=== PATIENT | female | born 1980 | race African-American/Black ===

== ENCOUNTER 2017-05-16 15:33 | Emergency (ER) | payer SELFPAY ==
[2017-05-16 18:54] LABS: #Basophils 0.2 thou/uL (0.0-0.2); #Eosinphils 0.4 thou/uL (0.0-0.7); #Lymphocytes 5.5 thou/uL (1.20-3.40); #Monocytes 0.7 thou/uL (0.11-0.59); #Neutrophils 5.3 thou/uL (1.40-6.50); %Basophils 1.3 % (0.0-1.0); %Eosinophils 3.5 % (0.0-10.0); %Lymphocytes 45.6 % (21.0-51.0); %Monocytes 5.8 % (0.0-10.0); Hematocrit 39.9 % (36.0-47.0); Mean Platelet Volume 7.7 fL (7.4-10.4); Red Blood Cell (RBC) Count 4.31 mill/uL (4.20-5.40); White Blood Cell (WBC) Count 12.1 thou/uL (4.8-10.8)
[2017-05-16] MEDS ORDERED: Diazepam 5 MG TAB ONE (19:10)
[2017-05-16] MEDS ORDERED: Acetaminophen 500 MG TAB ONE (19:10)
[2017-05-16 19:13] LABS: Anion Gap 12 mmol/L (10-20); BUN (Urea Nitrogen) 6 mg/dL (7.0-18.7); Calc. Creatinine Clearance 0 mL/min (70-130); Calcium 9.4 mg/dL (7.8-10.44); Carbon Dioxide 22 mmol/L (22-29); Chloride 104 mmol/L (98-107); Estimated GFR-MDRD Greater than 90
[2017-05-16] MEDS ORDERED: Ketorolac Tromethamine 30 MG/ML VIAL ONE (19:17)
[2017-05-16 19:18] LABS: Troponin I Less than 0.010 ng/mL (< 0.028)
--- NOTE | 2017-05-16 19:41 | RAD ---
CHEST TWO VIEWS: History: Cough. Comparison: 02-18-17 FINDINGS: Lungs are clear. No pneumothorax or effusion. Cardiac silhouette and mediastinal contours within norm al limits. IMPRESSION: No acute intrathoracic abnormality. POS: [facility]
[2017-05-16] MEDS ORDERED: Meclizine HCl 25 MG TAB ONE (21:32)
== END 2017-05-16 21:39 | disposition home or self-care (01) ==
LOC: ERS 15:33
DX: R42 Dizziness and giddiness (principal); R05 Cough; E11.9 Type 2 diabetes mellitus without complications; F17.210 Nicotine dependence, cigarettes, uncomplicated; J45.909 Unspecified asthma, uncomplicated; Z79.84 Long term (current) use of oral hypoglycemic drugs
CPT/HCPCS: 36415; 71020; 80048; 82553; 84484; 85025; 85379; 96372; 99406; J1885; J7620

== ENCOUNTER 2017-06-17 18:07 | Emergency (ER) | payer SELFPAY ==
[2017-06-17] MEDS ORDERED: methylPREDNISolone Sod Succ/PF 125 MG/2 ML VIAL ONE (18:39)
[2017-06-17] MEDS ORDERED: Water For Inject, Bacteriostat 30 ML ONE (18:39)
[2017-06-17] MEDS ORDERED: Albuterol Sulfate 2.5 mg/0.5 ml Neb ONE (18:49)
--- NOTE | 2017-06-17 18:56 | RAD ---
AP CHEST: Indication: Dyspnea. Comparison: 05-16-17 IMPRESSION: No acute cardiopulmonary abnormalities. Examination is not appreciably changed from comparison dated 05-16-17. POS: [facility]
[2017-06-17 19:00] LABS: #Basophils 0.2 thou/uL (0.0-0.2); #Eosinphils 0.3 thou/uL (0.0-0.7); #Lymphocytes 5.6 thou/uL (1.20-3.40); #Monocytes 0.6 thou/uL (0.11-0.59); #Neutrophils 5.2 thou/uL (1.40-6.50); %Basophils 1.4 % (0.0-1.0); %Eosinophils 2.3 % (0.0-10.0); %Monocytes 5.2 % (0.0-10.0); Hemoglobin 13.2 g/dL (12.0-16.0); Mean Corpuscular HGB CONC 33.7 g/dL (32.0-36.0); Mean Corpuscular Hemoglobin 31.2 pg (27.0-31.0); Mean Corpuscular Volume 92.5 fl (81.0-99.0); Mean Platelet Volume 9.1 fL (7.4-10.4); Platelet Count 256 thou/uL (130-400); RBC Distribution Width 12.2 % (11.5-14.5); Red Blood Cell (RBC) Count 4.24 mill/uL (4.20-5.40); White Blood Cell (WBC) Count 11.8 thou/uL (4.8-10.8)
[2017-06-17 19:25] LABS: ALT (SGPT) 44 U/L (8-55); AST (SGOT) 34 U/L (5-34); Albumin 4.1 g/dL (3.5-5.0); Alkaline Phosphatase 93 U/L (40-150); Anion Gap 18 mmol/L (10-20); BUN (Urea Nitrogen) 8 mg/dL (7.0-18.7); Bilirubin, Total 0.2 mg/dL (0.2-1.2); Calc. Creatinine Clearance 0 mL/min (70-130); Calcium 9.7 mg/dL (7.8-10.44); Carbon Dioxide 18 mmol/L (22-29); Chloride 105 mmol/L (98-107); Estimated GFR-MDRD Greater than 90; Globulin 3.9 g/dL (2.4-3.5); Glucose 239 mg/dL (70-105); Potassium 4.5 mmol/L (3.5-5.1); Sodium 136 mmol/L (136-145)
== END 2017-06-17 20:28 | disposition home or self-care (01) ==
LOC: ERS 18:07
DX: J45.901 Unspecified asthma with (acute) exacerbation (principal); E11.9 Type 2 diabetes mellitus without complications; Z71.6 Tobacco abuse counseling; F17.210 Nicotine dependence, cigarettes, uncomplicated; F17.290 Nicotine dependence, other tobacco product, uncomplicated
CPT/HCPCS: 36416; 71045; 80053; 85025; 94640; 94760; 96365; 99406; J2930; J7611; J7620

== ENCOUNTER 2017-09-19 12:13 | Emergency (ER) | payer SELFPAY ==
[2017-09-19 13:13] LABS: #Basophils 0.1 thou/uL (0.0-0.2); #Eosinphils 0.4 thou/uL (0.0-0.7); #Lymphocytes 4.4 thou/uL (1.20-3.40); #Monocytes 0.6 thou/uL (0.11-0.59); #Neutrophils 5.6 thou/uL (1.40-6.50); %Basophils 1.1 % (0.0-1.0); %Eosinophils 3.6 % (0.0-10.0); %Lymphocytes 39.8 % (21.0-51.0); %Monocytes 5.3 % (0.0-10.0); %Neutrophils 50.2 % (42.0-75.0); Hemoglobin 11.9 g/dL (12.0-16.0); Mean Corpuscular HGB CONC 33.6 g/dL (32.0-36.0); Mean Corpuscular Hemoglobin 29.8 pg (27.0-31.0); Mean Corpuscular Volume 88.8 fl (81.0-99.0); Mean Platelet Volume 8.1 fL (7.4-10.4); Platelet Count 265 thou/uL (130-400); RBC Distribution Width 12.3 % (11.5-14.5); White Blood Cell (WBC) Count 11.1 thou/uL (4.8-10.8)
[2017-09-19 13:34] LABS: ALT (SGPT) 37 U/L (8-55); AST (SGOT) 25 U/L (5-34); Albumin 3.8 g/dL (3.5-5.0); Alkaline Phosphatase 96 U/L (40-150); Anion Gap 11 mmol/L (10-20); BUN (Urea Nitrogen) 11 mg/dL (7.0-18.7); Bilirubin, Total 0.2 mg/dL (0.2-1.2); Calc. Creatinine Clearance 0 mL/min (70-130); Calcium 9.2 mg/dL (7.8-10.44); Carbon Dioxide 22 mmol/L (22-29); Chloride 106 mmol/L (98-107); Estimated GFR-MDRD Greater than 90; Globulin 3.4 g/dL (2.4-3.5); Glucose 347 mg/dL (70-105); Protein, Total 7.2 g/dL (6.0-8.3); Sodium 135 mmol/L (136-145)
[2017-09-19 13:37] LABS: CKMB 0.6 ng/mL (0-6.6); Troponin I Less than 0.010 ng/mL (< 0.028)
--- NOTE | 2017-09-19 13:37 | RAD ---
PORTABLE CHEST 1 VIEW: Date: 09/19/17 Time: 1234 hours HISTORY: Chest pain. FINDINGS: Comparison made with exam of 06/17/17. The heart size is normal. The lungs are expanded without focal areas of consolidation, pneumothorax, or pleural effusions. IMPRESSION: No radiographic evidence of acute cardiopulmonary process. POS: [facility]
[2017-09-19] MEDS ORDERED: methylPREDNISolone Sod Succ/PF 125 MG/2 ML VIAL ONE (13:51)
[2017-09-19 13:54] LABS: Amphetamine Not Detected (NotDetected); Barbiturates Screen Not Detected (NotDetected); Benzodiazepine Screen Not Detected (NotDetected); Cocaine Metabolite Screen Not Detected (NotDetected); Medtox Control Line Valid? VALID (VALID); Medtox Reader # READER 4; Methadone Not Detected (NotDetected); Methamphetamine Not Detected (NotDetected); Opiate Screen Not Detected (NotDetected); Oxycodone Screen Not Detected (NotDetected); Phencyclidine (PCP) Not Detected (NotDetected); THC/Cannabinoid Screen Not Detected (NotDetected); Tricyclic Screen Not Detected (NotDetected)
== END 2017-09-19 14:35 | disposition home or self-care (01) ==
LOC: ERS 12:13
DX: J45.901 Unspecified asthma with (acute) exacerbation (principal); E11.9 Type 2 diabetes mellitus without complications; F17.210 Nicotine dependence, cigarettes, uncomplicated; Z79.84 Long term (current) use of oral hypoglycemic drugs
CPT/HCPCS: 36415; 71045; 80053; 80306; 82553; 84484; 85025; 93005; 94640; 96374; J2930; J7620

== ENCOUNTER 2017-10-14 09:58 | Emergency (ER) | payer SELFPAY ==
[2017-10-14] MEDS ORDERED: Ketorolac Tromethamine 60 MG/2 ML VIAL ONE (11:11)
== END 2017-10-14 11:33 | disposition home or self-care (01) ==
LOC: ERS 09:58
DX: S39.012A Strain of muscle, fascia and tendon of lower back, initial encounter (principal); J45.909 Unspecified asthma, uncomplicated; E11.9 Type 2 diabetes mellitus without complications; Z79.84 Long term (current) use of oral hypoglycemic drugs; F17.210 Nicotine dependence, cigarettes, uncomplicated; Z71.6 Tobacco abuse counseling; X50.9XXA Other and unspecified overexertion or strenuous movements or postures, initial encounter
CPT/HCPCS: 96372; J1885

== ENCOUNTER 2017-11-29 05:00 | Emergency (ER) | payer SELFPAY ==
[2017-11-29] MEDS ORDERED: Ketorolac Tromethamine 30 MG/ML VIAL ONE (05:16)
[2017-11-29 05:27] LABS: #Basophils 0.1 thou/uL (0.0-0.2); #Eosinphils 0.3 thou/uL (0.0-0.7); #Lymphocytes 4.2 thou/uL (1.20-3.40); #Monocytes 0.6 thou/uL (0.11-0.59); #Neutrophils 3.4 thou/uL (1.40-6.50); %Basophils 1.3 % (0.0-1.0); %Eosinophils 3.9 % (0.0-10.0); %Lymphocytes 48.5 % (21.0-51.0); %Monocytes 7.1 % (0.0-10.0); %Neutrophils 39.3 % (42.0-75.0); Hemoglobin 10.7 g/dL (12.0-16.0); Mean Corpuscular HGB CONC 34.3 g/dL (32.0-36.0); Mean Corpuscular Hemoglobin 29.8 pg (27.0-31.0); Mean Corpuscular Volume 86.7 fl (81.0-99.0); Mean Platelet Volume 8.1 fL (7.4-10.4); Platelet Count 268 thou/uL (130-400); RBC Distribution Width 12.6 % (11.5-14.5); White Blood Cell (WBC) Count 8.6 thou/uL (4.8-10.8)
[2017-11-29 05:44] LABS: ALT (SGPT) 31 U/L (8-55); AST (SGOT) 24 U/L (5-34); Albumin 3.8 g/dL (3.5-5.0); Alkaline Phosphatase 104 U/L (40-150); Anion Gap 13 mmol/L (10-20); BUN (Urea Nitrogen) 10 mg/dL (7.0-18.7); Bilirubin, Total 0.2 mg/dL (0.2-1.2); Calc. Creatinine Clearance 0 mL/min (70-130); Carbon Dioxide 22 mmol/L (22-29); Chloride 106 mmol/L (98-107); Estimated GFR-MDRD Greater than 90; Globulin 3.7 g/dL (2.4-3.5); Glucose 272 mg/dL (70-105); Potassium 4.2 mmol/L (3.5-5.1); Protein, Total 7.5 g/dL (6.0-8.3); Sodium 137 mmol/L (136-145)
[2017-11-29 05:46] LABS: CKMB 0.3 ng/mL (0-6.6); Troponin I Less than 0.010 ng/mL (< 0.028)
[2017-11-29] MEDS ORDERED: predniSONE 20 MG TAB ONE (05:56)
[2017-11-29] MEDS ORDERED: Albuterol Sulfate 2.5 mg/3 ml Neb ONE (06:05)
--- NOTE | 2017-11-29 08:10 | RAD ---
PORTABLE CHEST 1 VIEW: DATE: 11/29/17. TIME: 5:20 a.m. HISTORY: Chest pian. FINDINGS: Comparison is made with the exam of 09/19/17. The heart size is normal. No focal areas of consolidation, pneumothorax, or pleural effusions are se en. IMPRESSION: No radiographic evidence of acute cardiopulmonary process. POS: [facility]
== END 2017-11-29 06:49 | disposition home or self-care (01) ==
LOC: ERS 05:00
DX: R07.9 Chest pain, unspecified (principal); J45.909 Unspecified asthma, uncomplicated; E11.9 Type 2 diabetes mellitus without complications; F17.210 Nicotine dependence, cigarettes, uncomplicated; Z79.84 Long term (current) use of oral hypoglycemic drugs; Z79.899 Other long term (current) drug therapy
CPT/HCPCS: 36415; 71045; 80053; 82553; 83880; 84484; 85025; 93005; 94640; 96361; 96374; J1885; J7506; J7611; J7620

== ENCOUNTER 2017-12-25 12:01 | Emergency (ER) | payer SELFPAY | END 2017-12-25 13:18 | disposition home or self-care (01) | LOC: ERS 12:01 | DX: J02.0 Streptococcal pharyngitis (principal); J30.9 Allergic rhinitis, unspecified; Z71.6 Tobacco abuse counseling; J45.909 Unspecified asthma, uncomplicated; E11.9 Type 2 diabetes mellitus without complications; F17.290 Nicotine dependence, other tobacco product, uncomplicated | CPT/HCPCS: 87430; 99406 ==

== ENCOUNTER 2018-01-08 18:58 | Emergency (ER) | payer SELFPAY | END 2018-01-09 00:09 | disposition left against medical advice (07) | LOC: ERS 18:58 | DX: Z53.21 Procedure and treatment not carried out due to patient leaving prior to being seen by health care provider (principal) | CPT/HCPCS: 36416 ==

== ENCOUNTER 2018-02-14 17:50 | Emergency (ER) | payer SELFPAY ==
[2018-02-14 18:50] LABS: #Basophils 0.1 thou/uL (0.0-0.2); #Eosinphils 0.2 thou/uL (0.0-0.7); #Lymphocytes 4.5 thou/uL (1.20-3.40); #Monocytes 0.5 thou/uL (0.11-0.59); #Neutrophils 3.7 thou/uL (1.40-6.50); %Basophils 1.5 % (0.0-1.0); %Eosinophils 2.7 % (0.0-10.0); %Lymphocytes 49.4 % (21.0-51.0); %Monocytes 5.2 % (0.0-10.0); %Neutrophils 41.2 % (42.0-75.0); Hemoglobin 11.7 g/dL (12.0-16.0); Mean Corpuscular HGB CONC 33.7 g/dL (32.0-36.0); Mean Corpuscular Hemoglobin 28.3 pg (27.0-31.0); Mean Corpuscular Volume 83.8 fL (78.0-98.0); Mean Platelet Volume 7.9 fL (7.4-10.4); Platelet Count 318 thou/uL (130-400); RBC Distribution Width 13.4 % (11.5-14.5); Red Blood Cell (RBC) Count 4.14 mill/uL (4.20-5.40); White Blood Cell (WBC) Count 9.1 thou/uL (4.8-10.8)
[2018-02-14 19:12] LABS: ALT (SGPT) 27 U/L (8-55); AST (SGOT) 17 U/L (5-34); Albumin 4.2 g/dL (3.5-5.0); Alkaline Phosphatase 90 U/L (40-150); Anion Gap 11 mmol/L (10-20); BUN (Urea Nitrogen) 9 mg/dL (7.0-18.7); Bilirubin, Total 0.2 mg/dL (0.2-1.2); Calc. Creatinine Clearance 0 mL/min (70-130); Calcium 9.4 mg/dL (7.8-10.44); Carbon Dioxide 22 mmol/L (22-29); Chloride 105 mmol/L (98-107); Estimated GFR-MDRD 85; Glucose 229 mg/dL (70-105); Potassium 4.1 mmol/L (3.5-5.1); Protein, Total 8.2 g/dL (6.0-8.3); Sodium 134 mmol/L (136-145)
[2018-02-14 20:57] LABS: Bilirubin Negative (Negative); Blood, Urine Negative (Negative); Clarity CLOUDY (Clear); Glucose, Urine (Dipstick) 250 mg/dL (Negative); Leukocyte Small (Negative); Nitrite Positive (Negative); Protein, Urine (Dipstick) Trace mg/dL (Neg-Trace); Specific Gravity, Urine 1.032 (1.002-1.036); Urobilinogen 0.2 mg/dL (0.2-1.0); pH, Urine 5.5 (5.0-9.0)
[2018-02-14 20:58] LABS: Pregnancy Test - Urine (BHCG) Negative (Negative); Pregu Control Background? CLEAR/WHITE (CLR/WHITE); Pregu Control Bar Appear? YES (CONTROL BAR); Specific Gravity 1.032 (1.002-1.036)
[2018-02-14 20:59] LABS: Bacteria/HPF 4+ HPF (None Seen); Pathc Cast-AUWi Flag 1.45 (0-2.49); RBC/HPF 0-3 HPF (0-3); Squamous Epithelial 0-3 HPF (0-3)
[2018-02-14 21:01] LABS: Hyaline Casts/LPF 0-3 HYALINE CAST LPF (0-3 Hyaline)
[2018-02-14] MEDS ORDERED: Meclizine HCl 25 MG TAB ONE (21:07)
[2018-02-14] MEDS ORDERED: cefTRIAXone\\ROCEPHIN 1 GM VIAL ONE (21:57)
== END 2018-02-14 22:52 | disposition home or self-care (01) ==
LOC: ERS 17:50
DX: N39.0 Urinary tract infection, site not specified (principal); J45.909 Unspecified asthma, uncomplicated; E11.9 Type 2 diabetes mellitus without complications; F17.210 Nicotine dependence, cigarettes, uncomplicated
CPT/HCPCS: 36415; 80053; 81003; 81015; 81025; 85025; 87077; 87086; 87186; 93005; 96361; 96365; J0696

== ENCOUNTER 2018-05-30 17:34 | Emergency (ER) | payer SELFPAY ==
[2018-05-30] MEDS ORDERED: Meclizine HCl 25 MG TAB ONE (18:11)
[2018-05-30 18:15] LABS: #Basophils 0.1 thou/uL (0.0-0.2); #Eosinphils 0.2 thou/uL (0.0-0.7); #Lymphocytes 3.2 thou/uL (1.20-3.40); #Monocytes 0.5 thou/uL (0.11-0.59); #Neutrophils 3.8 thou/uL (1.40-6.50); %Basophils 1.3 % (0.0-1.0); %Eosinophils 2.8 % (0.0-10.0); %Lymphocytes 40.6 % (21.0-51.0); %Monocytes 6.3 % (0.0-10.0); %Neutrophils 48.9 % (42.0-75.0); Hemoglobin 10.5 g/dL (12.0-16.0); Mean Corpuscular HGB CONC 31.8 g/dL (32.0-36.0); Mean Corpuscular Volume 81.8 fL (78.0-98.0); Mean Platelet Volume 8.1 fL (7.4-10.4); Platelet Count 338 thou/uL (130-400); RBC Distribution Width 13.8 % (11.5-14.5); Red Blood Cell (RBC) Count 4.05 mill/uL (4.20-5.40); White Blood Cell (WBC) Count 7.8 thou/uL (4.8-10.8)
[2018-05-30 18:24] LABS: BHCG - Serum Negative (NEGATIVE); Pregs Control Background? CLEAR/WHITE (CLR/WHITE); Pregs Control Bar Appear? YES (CONTROL BAR)
--- NOTE | 2018-05-30 18:31 | RAD ---
RADIOGRAPH CHEST 1 VIEW: 05/30/18 HISTORY: 37-year-old female with chest pain and generalized weakness. FINDINGS: There is no air space density, pulmonary edema, or pneumothorax. The lateral costophrenic angles are sharp. IMPRESSION: No acute pulmonary findings. jn [] POS: [facility]
[2018-05-30 18:34] LABS: CK (CPK) 86 U/L (29-168); Lipase 15 U/L (8-78)
[2018-05-30 20:17] LABS: ALT (SGPT) 18 U/L (8-55); AST (SGOT) 17 U/L (5-34); Albumin 3.8 g/dL (3.5-5.0); Alkaline Phosphatase 87 U/L (40-150); Anion Gap 10 mmol/L (10-20); BUN (Urea Nitrogen) 7 mg/dL (7.0-18.7); Bilirubin, Total 0.2 mg/dL (0.2-1.2); Calc. Creatinine Clearance 0 mL/min (70-130); Calcium 9.1 mg/dL (7.8-10.44); Carbon Dioxide 26 mmol/L (22-29); Chloride 106 mmol/L (98-107); Estimated GFR-MDRD Greater than 90; Globulin 3.8 g/dL (2.4-3.5); Glucose 241 mg/dL (70-105); Potassium 3.7 mmol/L (3.5-5.1); Protein, Total 7.6 g/dL (6.0-8.3); Sodium 138 mmol/L (136-145)
[2018-05-30 20:36] LABS: Bilirubin Negative (Negative); Blood, Urine Negative (Negative); Clarity CLEAR (Clear); Glucose, Urine (Dipstick) >=1000 mg/dL (Negative); Leukocyte Trace (Negative); Nitrite Negative (Negative); Protein, Urine (Dipstick) Negative (Neg-Trace); Specific Gravity, Urine 1.025 (1.002-1.036)
[2018-05-30 20:39] LABS: Bacteria/HPF Rare-Few HPF (None Seen); Hyaline Casts/LPF 0-3 HYALINE CAST LPF (0-3 Hyaline); Pathc Cast-AUWi Flag 0.14 (0-2.49); RBC/HPF 0-3 HPF (0-3)
[2018-05-30 20:48] LABS: Squamous Epithelial 0-3 HPF (0-3)
[2018-05-30] MEDS ORDERED: Acetaminophen 500 MG TAB ONE (21:58)
[2018-05-30] MEDS ORDERED: Diazepam 5 MG TAB ONE (21:58)
[2018-05-30] MEDS ORDERED: Cephalexin 250 MG CAP ONE (21:58)
--- NOTE | 2018-05-31 13:38 | EKG ---
Test Reason : Blood Pressure : / mmHG Vent. Rate : 072 BPM Atrial Rate : 072 BPM P-R Int : 178 ms QRS Dur : 086 ms QT Int : 398 ms P-R-T Axes : 043 057 034 degrees QTc Int : 435 ms Normal sinus rhythm Normal ECG Confirmed by RUTH MARSHALL DO ([id number]), editorial intern WHITLEY LIANG ([id number]) on 05/31/2018 1:37:40 PM Referred By: Confirmed By:RUTH MARSHALL DO
== END 2018-05-30 22:42 | disposition home or self-care (01) ==
LOC: ERS 17:34
DX: R42 Dizziness and giddiness (principal); N39.0 Urinary tract infection, site not specified; J45.909 Unspecified asthma, uncomplicated; E11.9 Type 2 diabetes mellitus without complications; F17.210 Nicotine dependence, cigarettes, uncomplicated; Z79.84 Long term (current) use of oral hypoglycemic drugs
CPT/HCPCS: 71045; 80053; 81003; 81015; 82010; 82550; 83690; 84484; 84703; 85025; 93005; 96360; 96361

== ENCOUNTER 2018-08-18 17:29 | Emergency (ER) | payer SELFPAY | END 2018-08-18 19:24 | disposition home or self-care (01) | LOC: ERS 17:29 | DX: S29.012A Strain of muscle and tendon of back wall of thorax, initial encounter (principal); E11.9 Type 2 diabetes mellitus without complications; J45.909 Unspecified asthma, uncomplicated; F17.210 Nicotine dependence, cigarettes, uncomplicated; X50.1XXA Overexertion from prolonged static or awkward postures, initial encounter | CPT/HCPCS: 99281 ==

== ENCOUNTER 2018-09-05 20:05 | Emergency (ER) | payer SELFPAY ==
--- NOTE | 2018-09-05 20:31 | RAD ---
CHEST ONE VIEW: 09/05/18 HISTORY: Pain. COMPARISON: 05/30/18. FINDINGS: Normal cardiac silhouette. Lungs and pleural spaces are clear. No pneumothorax or osseous abnormaliti es. IMPRESSION: No acute cardiopulmonary process. POS: [facility]
[2018-09-05] MEDS ORDERED: Nitroglycerin 0.4 MG TAB 1 EACH ONE (20:40)
[2018-09-05] MEDS ORDERED: Aspirin Chewable 81 MG TAB ONE (20:40)
[2018-09-05 20:43] LABS: #Basophils 0.1 thou/uL (0.0-0.2); #Eosinphils 0.3 thou/uL (0.0-0.7); #Lymphocytes 5.5 thou/uL (1.20-3.40); #Monocytes 0.8 thou/uL (0.11-0.59); #Neutrophils 5.2 thou/uL (1.40-6.50); %Basophils 1.2 % (0.0-1.0); %Eosinophils 2.2 % (0.0-10.0); %Lymphocytes 46.4 % (21.0-51.0); %Monocytes 6.3 % (0.0-10.0); %Neutrophils 43.8 % (42.0-75.0); Hemoglobin 10.6 g/dL (12.0-16.0); Mean Corpuscular HGB CONC 32.2 g/dL (32.0-36.0); Mean Corpuscular Hemoglobin 25.9 pg (27.0-31.0); Mean Corpuscular Volume 80.3 fL (78.0-98.0); Mean Platelet Volume 8.1 fL (7.4-10.4); Platelet Count 359 thou/uL (130-400); RBC Distribution Width 15.1 % (11.5-14.5); White Blood Cell (WBC) Count 11.8 thou/uL (4.8-10.8)
[2018-09-05 21:04] LABS: ALT (SGPT) 20 U/L (8-55); AST (SGOT) 15 U/L (5-34); Alkaline Phosphatase 99 U/L (40-150); Anion Gap 12 mmol/L (10-20); BUN (Urea Nitrogen) 10 mg/dL (7.0-18.7); Bilirubin, Total 0.2 mg/dL (0.2-1.2); Calc. Creatinine Clearance 0 mL/min (70-130); Calcium 9.3 mg/dL (7.8-10.44); Carbon Dioxide 24 mmol/L (22-29); Chloride 103 mmol/L (98-107); Estimated GFR-MDRD Greater than 90; Globulin 3.9 g/dL (2.4-3.5); Glucose 175 mg/dL (70-105); Potassium 3.9 mmol/L (3.5-5.1); Protein, Total 7.9 g/dL (6.0-8.3); Sodium 135 mmol/L (136-145)
[2018-09-05 21:07] LABS: BHCG - Serum Negative (NEGATIVE); Pregs Control Background? CLEAR/WHITE (CLR/WHITE); Pregs Control Bar Appear? YES (CONTROL BAR)
[2018-09-05] MEDS ORDERED: Morphine 4 MG/ML VIAL ONE (22:32)
[2018-09-05] MEDS ORDERED: Ondansetron PF 4 MG/2 ML Vial ONE (22:32)
[2018-09-06 00:29] LABS: Troponin I Less than 0.010 ng/mL (< 0.028)
== END 2018-09-06 00:59 | disposition home or self-care (01) ==
LOC: ERS 20:05
DX: R07.89 Other chest pain (principal); J45.909 Unspecified asthma, uncomplicated; E11.9 Type 2 diabetes mellitus without complications; F17.210 Nicotine dependence, cigarettes, uncomplicated; Z79.51 Long term (current) use of inhaled steroids; Z79.84 Long term (current) use of oral hypoglycemic drugs
CPT/HCPCS: 36415; 71045; 80053; 82550; 84484; 84703; 85025; 85379; 93005; 96374; 96375; J2270; J2405

== ENCOUNTER → 2018-10-21 | Emergency (ER) | payer SELFPAY | LOC: ERS 22:59 | DX: Z53.21 Procedure and treatment not carried out due to patient leaving prior to being seen by health care provider (principal) ==

== ENCOUNTER → 2018-12-17 | Emergency (ER) | payer SELFPAY ==
--- NOTE | 2018-12-17 19:15 | RAD ---
EXAM: Single view of the chest HISTORY: Chest pain COMPARISON: 09/05/2018 FINDINGS: Single view of the chest shows a normal sized cardiomediastinal silhouette. There is no antonino dence of consolidation, mass, or pleural effusion. The bones are unremarkable. IMPRESSION: No evidence of acute cardiopulmonary disease
[2018-12-17 19:42] LABS: #Basophils 0.1 thou/uL (0.0-0.2); #Eosinphils 0.5 thou/uL (0.0-0.7); #Monocytes 0.6 thou/uL (0.11-0.59); #Neutrophils 4.2 thou/uL (1.40-6.50); %Basophils 1.2 % (0.0-1.0); %Eosinophils 5.1 % (0.0-10.0); %Monocytes 5.5 % (0.0-10.0); %Neutrophils 40.2 % (42.0-75.0); Hemoglobin 10.8 g/dL (12.0-16.0); Mean Corpuscular HGB CONC 32.7 g/dL (32.0-36.0); Mean Corpuscular Hemoglobin 26.4 pg (27.0-31.0); Mean Corpuscular Volume 80.7 fL (78.0-98.0); Mean Platelet Volume 8.3 fL (7.4-10.4); Platelet Count 267 thou/uL (130-400); White Blood Cell (WBC) Count 10.4 thou/uL (4.8-10.8)
[2018-12-17 19:49] LABS: ALT (SGPT) 21 U/L (8-55); AST (SGOT) 15 U/L (5-34); Albumin 3.9 g/dL (3.5-5.0); Alkaline Phosphatase 99 U/L (40-150); Anion Gap 14 mmol/L (10-20); BUN (Urea Nitrogen) 10 mg/dL (7.0-18.7); Bilirubin, Total 0.2 mg/dL (0.2-1.2); Calc. Creatinine Clearance 0 mL/min (70-130); Calcium 9.3 mg/dL (7.8-10.44); Carbon Dioxide 19 mmol/L (22-29); Chloride 105 mmol/L (98-107); Estimated GFR-MDRD Greater than 90; Globulin 3.9 g/dL (2.4-3.5); Glucose 276 mg/dL (70-105); Potassium 3.7 mmol/L (3.5-5.1); Protein, Total 7.8 g/dL (6.0-8.3); Sodium 134 mmol/L (136-145)
--- NOTE | 2018-12-20 22:10 | EKG ---
Test Reason : Blood Pressure : / mmHG Vent. Rate : 092 BPM Atrial Rate : 092 BPM P-R Int : 132 ms QRS Dur : 084 ms QT Int : 366 ms P-R-T Axes : 061 059 040 degrees QTc Int : 452 ms Normal sinus rhythm with sinus arrhythmia Normal ECG Confirmed by OSVALDO LEE ([id number]), manager editorial EMILY WEBB ([id number]) on 12/20/2018 10:09:20 PM Referred By: Confirmed By:OSVALDO LEE
== END ==
LOC: ERS 18:44
DX: Z53.21 Procedure and treatment not carried out due to patient leaving prior to being seen by health care provider (principal)
CPT/HCPCS: 36415; 71045; 80053; 85025; 93005

== ENCOUNTER 2018-12-18 09:01 | Observation (INO) | payer SELFPAY ==
--- NOTE | 2018-12-18 09:26 | RAD ---
XR Chest 1 View Portable History: Cough Comparison: Radiograph prior day Findings: Lungs are clear. No pneumothorax. No effusion. No acute osseous abnormality. Impression: No acute intrathoracic abnormality.
[2018-12-18] MEDS ORDERED: Albuterol Sulfate 2.5 mg/0.5 ml Neb ONE (09:34)
[2018-12-18 09:46] LABS: #Basophils 0.1 thou/uL (0.0-0.2); #Eosinphils 0.7 thou/uL (0.0-0.7); #Lymphocytes 3.2 thou/uL (1.20-3.40); #Monocytes 0.5 thou/uL (0.11-0.59); %Basophils 0.8 % (0.0-1.0); %Eosinophils 7.9 % (0.0-10.0); %Lymphocytes 37.6 % (21.0-51.0); %Monocytes 6.2 % (0.0-10.0); %Neutrophils 47.5 % (42.0-75.0); Mean Corpuscular HGB CONC 32.8 g/dL (32.0-36.0); Mean Corpuscular Hemoglobin 26.6 pg (27.0-31.0); Mean Corpuscular Volume 81.3 fL (78.0-98.0); Mean Platelet Volume 8.3 fL (7.4-10.4); Platelet Count 263 thou/uL (130-400); RBC Distribution Width 15.3 % (11.5-14.5); Red Blood Cell (RBC) Count 3.76 mill/uL (4.20-5.40); White Blood Cell (WBC) Count 8.4 thou/uL (4.8-10.8)
[2018-12-18 09:54] LABS: BHCG - Serum Negative (NEGATIVE); Pregs Control Background? CLEAR/WHITE (CLR/WHITE); Pregs Control Bar Appear? YES (CONTROL BAR)
[2018-12-18 10:06] LABS: ALT (SGPT) 22 U/L (8-55); AST (SGOT) 15 U/L (5-34); Albumin 3.6 g/dL (3.5-5.0); Alkaline Phosphatase 83 U/L (40-150); Anion Gap 13 mmol/L (10-20); BUN (Urea Nitrogen) 8 mg/dL (7.0-18.7); Bilirubin, Total 0.3 mg/dL (0.2-1.2); Calc. Creatinine Clearance 0 mL/min (70-130); Calcium 8.7 mg/dL (7.8-10.44); Carbon Dioxide 21 mmol/L (22-29); Chloride 105 mmol/L (98-107); Estimated GFR-MDRD Greater than 90; Globulin 3.4 g/dL (2.4-3.5); Glucose 250 mg/dL (70-105); Potassium 3.7 mmol/L (3.5-5.1); Sodium 135 mmol/L (136-145)
[2018-12-18 10:28] LABS: CKMB 0.7 ng/mL (0-6.6)
--- NOTE | 2018-12-18 10:52 | CT ---
CTA Angio Chest W WO Con History: Hypertension. Asthma. Pneumonia. Comparison: Radiograph same day Findings: CT angiogram chest performed after the intravenous administration of contrast. 3-D renderin g provided. Exam is limited due to the delayed phase of contrast. No proximal segmental pulmonary arterial fillin g defect. No pericardial effusion. Aortic contour is nonaneurysmal. Prior cholecystectomy. Lungs are clear. No pneumothorax. No effusion. No acute osseous abnormality. Impression: No pulmonary embolism or other acute intrathoracic abnormality.
[2018-12-18] MEDS ORDERED: Aspirin Chewable 81 MG TAB ONE (10:55)
[2018-12-18] MEDS ORDERED: Morphine 4 MG/ML VIAL ONE (10:55)
[2018-12-18] MEDS ORDERED: ISOVUE-370 76%-LOCM 1 ML ONE (11:21)
[2018-12-18] MEDS ORDERED: Nitroglycerin 2% Ointment 1 INCH/1 GM Packet ONE (13:04)
[2018-12-18] MEDS ORDERED: Nitroglycerin 0.4 MG TAB 1 EACH ONE (13:04)
[2018-12-18] MEDS ORDERED: Ondansetron ODT 4 MG TAB SL PRN (13:38)
[2018-12-18] MEDS ORDERED: Acetaminophen 325 MG TAB PO PRN (13:38)
[2018-12-18] MEDS ORDERED: Ondansetron PF 4 MG/2 ML Vial IVP PRN (13:38)
[2018-12-18 13:44] LABS: Troponin I Less than 0.010 ng/mL (< 0.028)
[2018-12-18 13:45] VITALS: BMI 32.8
[2018-12-18] MEDS ORDERED: Ondansetron ODT 4 MG TAB PO PRN (15:03)
[2018-12-18] MEDS ORDERED: Dextrose 5% in Water 1,000 ML IV PRN (15:06)
[2018-12-18] MEDS ORDERED: Dextrose 50% Abboject 50 ML SYRINGE SLOW IVP PRN (15:06)
[2018-12-18] MEDS: cefTRIAXone\\ROCEPHIN 1 GM in Sodium Chloride 0.9% 100 ML IVPB SCH (15:41)
[2018-12-18 15:55] LABS: Troponin I Less than 0.010 ng/mL (< 0.028)
[2018-12-18] MEDS: HumaLOG 300 UNITS/3 ML VIAL SC PRN ×2 (17:07→20:26)
[2018-12-18] MEDS: methylPREDNISolone Sod Succ 40 MG VIAL IVP SCH ×2 (17:07→23:00)
[2018-12-18] MEDS: Ibuprofen 600 MG TAB PO PRN (18:59)
[2018-12-18] MEDS ORDERED: Morphine 4 MG/ML VIAL SLOW IVP PRN (19:35)
[2018-12-18] MEDS ORDERED: Nitroglycerin 0.4 MG TAB (25 Tab Bottle) SL PRN (19:39)
[2018-12-18] MEDS: Morphine 4 MG/ML VIAL SLOW IVP PRN (19:48)
[2018-12-18] MEDS: Simvastatin 5 MG TAB PO SCH (19:49)
[2018-12-18] MEDS: Famotidine 20 MG TAB PO SCH (19:50)
--- NOTE | 2018-12-18 22:18 | HP ---
CHIEF COMPLAINT: Chest pain, cough, and shortness of breath. HISTORY OF PRESENT ILLNESS: Ms. Riley is a 38-year-old female with past medical history significant for type 2 diabetes mellitus, obesity, history of tobacco abuse, asthma and hypertension, who presented to the hospital with a 1-week history of productive cough and shortness of breath. The patient states that her symptoms began about a week ago. She noticed that she had a cough productive of yellow-green sputum. She denied any fever. She was seen by her PCP, who started a Z-Fareed. Her symptoms briefly improved, but then returned a few days later. The patient works at a detention facility and reports that while she was performing her rounds, she began experiencing worsening shortness of breath with exertion along with some chest tightness. Because of her worsening symptoms, she decided to report to the ER for further workup and treatment. She presented yesterday to the ER, however, felt that it was too long to wait and did return today. Workup on arrival has included a chest x-ray, which was negative for any acute intrathoracic abnormality. Given her symptoms of chest pain and shortness of breath, D-dimer was ordered which was mildly elevated. She did undergo a CTA of the chest, which revealed no evidence of pulmonary embolism and no other acute intrathoracic abnormality. The patient was admitted to the hospitalist service for further workup and treatment. Her initial troponin was 0.034, but second two troponins are negative. BNP was 15. Other lab work remarkable for hemoglobin of 10, which is chronic for the patient, and a blood glucose of 250. The patient was given a breathing treatment in the ER with brief improvement of symptoms but upon my interview, she continues to complain of some chest pain which she describes as sharp and worse with coughing, along with shortness of breath. She was given sublingual nitroglycerin and nitro paste, which did not help with her chest pain. EKG was normal sinus rhythm and showed no ischemic ST or T-wave changes. REVIEW OF SYSTEMS: Ten-point review of systems performed and is negative except that stated above. The patient states that she has had no recent sick contacts. She has had no fever. No nausea, vomiting, or diarrhea. Review of systems otherwise negative except that stated in the HPI. ALLERGIES: HYDROCODONE, CODEINE, HYDROCODONE BITARTRATE. HOME MEDICATIONS: 1. Albuterol inhaler p.r.n. wheezing. 2. Lisinopril 5 mg p.o. daily. 3. Lovastatin 10 mg p.o. at bedtime. 4. Metformin 1000 mg p.o. b.i.d. PAST MEDICAL HISTORY: 1. Hyperlipidemia. 2. Hypertension. 3. Type 2 diabetes mellitus. 4. Asthma. PAST SURGICAL HISTORY: Cholecystectomy, appendectomy, tubal ligation. SOCIAL HISTORY: The patient has previous history of smoking, but states that she quit 2 weeks ago. She denies any alcohol or illicit drug use. FAMILY HISTORY: History of cardiomyopathy and IA in her father. PHYSICAL EXAMINATION: VITAL SIGNS: Blood pressure 128/63, pulse is 62, O2 saturation is 99% on room air, temperature 98.9, and pulse 62. GENERAL: The patient is an obese female, resting comfortably in bed, in no acute distress. HEENT: Head is atraumatic and normocephalic. Mucous membranes are moist. NECK: Supple. No lymphadenopathy. Trachea is midline. CV: S1 and S2. Regular rate and rhythm. No appreciable murmurs, rubs, or gallops. LUNGS: Regular respiratory rate and pattern. The patient has audible expiratory rhonchi and occasional expiratory wheeze. ABDOMEN: Soft, positive bowel sounds, nontender. EXTREMITIES: No edema. SKIN: Warm and dry. NEUROLOGIC: Cranial nerves 2 through 12 are grossly intact. The patient is nonfocal. LABORATORY DATA: White blood cell count 8.4, hemoglobin 10, hematocrit 30.6, platelet count is 263. Sodium 135, potassium 3.7, BUN 8, creatinine 0.75, glucose is 250. AST, ALT, alkaline phosphatase all within normal limits. Troponin 0.034 and then less than 0.010 respectively x2. BNP 15.2. ASSESSMENT: 1. Shortness of breath, chest pain and cough, which I suspect is secondary to acute asthma exacerbation. 2. Indeterminate troponin, unclear significance. 3. Hypertension. 4. Type 2 diabetes mellitus. 5. History of tobacco abuse, with recent cessation two weeks ago. 6. Chronic iron deficiency anemia, secondary to heavy menstrual bleeding. PLAN: At this time, we will treat the patient's acute asthma exacerbation with steroids, breathing treatment. I will also add antibiotic coverage. Regarding the patient's chest pain, this is largely atypical, however with some exertional symptoms along with indeterminate troponin, we will go ahead and perform nuclear stress test in the morning. We will continue her home medications and add sliding scale insulin. SCDs for DVT prophylaxis. Further recommendations based on findings of stress test and how well the patient responds to current treatment. Job ID: [id number]
[2018-12-19] MEDS: Morphine 4 MG/ML VIAL SLOW IVP PRN ×3 (00:02→20:20)
[2018-12-19 05:22] LABS: #Lymphocytes 1.3 thou/uL (1.20-3.40); #Monocytes 0.1 thou/uL (0.11-0.59); #Neutrophils 10.3 thou/uL (1.40-6.50); %Basophils 0.1 % (0.0-1.0); %Eosinophils 0.1 % (0.0-10.0); %Lymphocytes 11.4 % (21.0-51.0); %Monocytes 0.6 % (0.0-10.0); %Neutrophils 87.7 % (42.0-75.0); Hemoglobin 10.5 g/dL (12.0-16.0); Mean Corpuscular HGB CONC 32.5 g/dL (32.0-36.0); Mean Corpuscular Hemoglobin 26.9 pg (27.0-31.0); Mean Corpuscular Volume 82.6 fL (78.0-98.0); Mean Platelet Volume 9.1 fL (7.4-10.4); Platelet Count 280 thou/uL (130-400); RBC Distribution Width 15.6 % (11.5-14.5); Red Blood Cell (RBC) Count 3.89 mill/uL (4.20-5.40); White Blood Cell (WBC) Count 11.7 thou/uL (4.8-10.8)
[2018-12-19] MEDS: methylPREDNISolone Sod Succ 40 MG VIAL IVP SCH ×2 (05:42→10:54)
[2018-12-19] MEDS: HumaLOG 300 UNITS/3 ML VIAL SC PRN ×4 (05:46→20:36)
[2018-12-19 05:47] LABS: Anion Gap 15 mmol/L (10-20); BUN (Urea Nitrogen) 10 mg/dL (7.0-18.7); Calc. Creatinine Clearance 133 mL/min (70-130); Calcium 9.5 mg/dL (7.8-10.44); Carbon Dioxide 18 mmol/L (22-29); Chloride 105 mmol/L (98-107); Estimated GFR-MDRD Greater than 90; Glucose 359 mg/dL (70-105); Potassium 4.6 mmol/L (3.5-5.1); Sodium 133 mmol/L (136-145)
[2018-12-19] MEDS: Lisinopril 5 MG TAB PO SCH (10:57)
[2018-12-19] MEDS: Famotidine 20 MG TAB PO SCH ×2 (10:57→20:22)
[2018-12-19] MEDS: Ibuprofen 600 MG TAB PO PRN ×2 (11:00→20:32)
[2018-12-19] MEDS: cefTRIAXone\\ROCEPHIN 1 GM in Sodium Chloride 0.9% 100 ML IVPB SCH (14:37)
--- NOTE | 2018-12-19 15:11 | PRG ---
DATE OF SERVICE: SUBJECTIVE: Ms. Riley is a pleasant 38-year-old female with past medical history significant for chronic asthma, type 2 diabetes mellitus, obesity, and hypertension, who presented to the hospital with a 1-week history of worsening shortness of breath, productive cough, and chest tightness. The patient was admitted for chest pain, rule out, and is also being treated for acute asthma exacerbation. The patient states that her breathing is much better. She still complains of some chest tightness. Her cough is almost resolved. She feels much improved since her admission. She has no other complaints to me at this time. She denies nausea or vomiting. She denies any dizziness. OBJECTIVE: VITAL SIGNS: Blood pressure 132/70, pulse is 84, O2 saturation is 99% on room air, respirations 15, temperature 98.1. GENERAL: The patient is a moderately obese female, resting comfortably in bed, in no acute distress HEENT: Head is atraumatic and normocephalic. Mucous membranes are moist. NECK: Supple. No lymphadenopathy. No appreciable JVD. CV: S1 and S2. Regular rhythm. No appreciable murmurs, rubs, or gallops. LUNGS: Regular respiratory rate and pattern, overall clear to auscultation today with no rhonchi or wheezes noted. ABDOMEN: Soft. Positive bowel sounds. Nontender. EXTREMITIES: No edema. SKIN: Warm and dry. NEUROLOGIC: Cranial nerves 2 through 12 are intact. The patient is nonfocal. LABORATORY DATA: WBC of 11.7, hemoglobin 10.5, hematocrit 32.2, platelets are 280. Sodium 133, potassium 4.6, BUN is 15, creatinine 0.85. Troponin was negative. ASSESSMENT: 1. Acute asthma exacerbation, improving. 2. Chest pain and indeterminate troponin, nuclear stress test pending. 3. Hypertension. 4. Type 2 diabetes mellitus, with increased glucose reading secondary to steroids. 5. History of tobacco abuse with recent cessation 2 weeks ago. 6. Chronic iron deficiency anemia, secondary to heavy menstrual bleeding. PLAN: We will deescalate her steroids today given her vast improvement. We will continue her Rocephin and breathing treatments. She will have the second part of her stress test tomorrow. We will continue sliding scale insulin and SCDs for DVT prophylaxis. We will continue sliding scale insulin. Expect discharge tomorrow if nuclear stress test reveals no reversible ischemia. Job ID: [id number]
[2018-12-19] MEDS ORDERED: Regadenoson 0.4 MG/5 ML SYRINGE ONE (16:02)
[2018-12-19] MEDS: Simvastatin 5 MG TAB PO SCH (20:19)
[2018-12-20] MEDS: Morphine 4 MG/ML VIAL SLOW IVP PRN (02:39)
[2018-12-20] MEDS: Ibuprofen 600 MG TAB PO PRN (02:45)
[2018-12-20] MEDS: HumaLOG 300 UNITS/3 ML VIAL SC PRN ×2 (06:11→11:50)
[2018-12-20] MEDS ORDERED: predniSONE 20 MG TAB PO SCH (08:00)
[2018-12-20 08:22] VITALS: TEMP 98.1
[2018-12-20] MEDS: Lisinopril 5 MG TAB PO SCH (09:55)
[2018-12-20] MEDS: Famotidine 20 MG TAB PO SCH (09:56)
--- NOTE | 2018-12-20 10:15 | NM ---
NUCLEAR MEDICINE CARDIAC MYOCARDIAL PERFUSION SPECT EJECTION FRACTION STUDY WALL MOTION CINE: DATE: 12/20/2018 HISTORY: 38-year-old female with hypertension, dyslipidemia, diabetes mellitus, and smoking history, presents with acute chest pain. TECHNIQUE: Number of days: 2 Rest study: Technetium 99m-sestamibi (Cardiolite) dose: 31.5 mCi Pharmacologic stress: Lexiscan dose: 0.4 mg Stress study: Technetium 99m-sestamibi (Cardiolite) dose: 28.9 mCi FINDINGS: CARDIAC (MYOCARDIAL PERFUSION) SPECT There are no reversible myocardial perfusion defects. EJECTION FRACTION STUDY Left ventricular EF = 67 % WALL MOTION CINE Normal IMPRESSION: No evidence of reversible ischemia.
[2018-12-20 12:05] VITALS: BP 166/88
--- NOTE | 2018-12-20 19:50 | DIS ---
DATE OF ADMISSION: 12/18/2018 DATE OF DISCHARGE: 12/20/2018 CHIEF COMPLAINT: On admission was chest pain, cough, and shortness of breath. DISCHARGE DIAGNOSES: 1. Acute on chronic asthma exacerbation, resolved. 2. Chest pain, cough, and shortness of breath, secondary to above, resolved. 3. Indeterminate troponin, a nuclear stress test negative for any reversible ischemia, normal ejection fraction. 4. Hypertension. 5. Type 2 diabetes mellitus. 6. History of tobacco abuse with recent cessation 2 weeks ago. 7. Chronic iron deficiency anemia, secondary to heavy menstrual bleeding. BRIEF HOSPITAL COURSE: The patient is a 38-year-old female with past medical history significant for type 2 diabetes mellitus, obesity, history of tobacco abuse, longstanding asthma, and hypertension, who presented to the hospital with complaints of a 1-week history of chest pain associated with productive cough and shortness of breath. Her symptoms began about 1 week prior to her admission. She was at one point given a Z-Fareed by her PCP, her symptoms briefly improved, but then returned a few days later. While she was at work, she was noticing worsening dyspnea with exertion along with some chest pressure. She presented to the ER for further workup and treatment. She did undergo a CTA of the chest, which was negative for any pulmonary embolism or other intrathoracic abnormality. She underwent nuclear stress test which showed normal left ventricular systolic function and ejection fraction and no evidence of reversible ischemia. She was treated for her asthma exacerbation with scheduled breathing treatments, IV steroids, and IV Rocephin. Her symptoms have completely resolved. On the morning of my interview, the patient states she feels very well. She has had no further cough. Her chest pain has resolved. Her breathing is back to baseline. DISCHARGE DISPOSITION: Home. DISCHARGE CONDITION: Stable. FOLLOWUP AND DISCHARGE INSTRUCTIONS: The patient will be discharged on Omnicef 300 mg p.o. b.i.d. for the next 5 days, along with a Medrol Dosepak, steroid taper. She will continue her p.r.n. inhaler at home. I have counseled the patient extensively on blood glucose control and aggressively managing and modifying her risk factors. She will be discharged to home on a low-sodium, diabetic diet. She will follow up with her PCP in the next week. Job ID: [id number]
--- NOTE | 2018-12-20 23:43 | EKG ---
Test Reason : CP Blood Pressure : / mmHG Vent. Rate : 088 BPM Atrial Rate : 088 BPM P-R Int : 152 ms QRS Dur : 080 ms QT Int : 364 ms P-R-T Axes : 040 051 030 degrees QTc Int : 440 ms Normal sinus rhythm Normal ECG Confirmed by MERLENE SPAULDING ([id number]), supervising editor trailer EMILY WEBB ([id number]) on 12/20/2018 11:42:49 PM Referred By: Confirmed By:MERLENE SPAULDING
--- NOTE | 2018-12-20 23:43 | EKG ---
Test Reason : Blood Pressure : / mmHG Vent. Rate : 078 BPM Atrial Rate : 078 BPM P-R Int : 158 ms QRS Dur : 086 ms QT Int : 384 ms P-R-T Axes : 053 058 033 degrees QTc Int : 437 ms Normal sinus rhythm Normal ECG Confirmed by MERLENE SPAULDING ([id number]), assistant film editor EMILY WEBB ([id number]) on 12/20/2018 11:42:50 PM Referred By: JASSON Confirmed By:MERLENE SPAULDING
== END 2018-12-20 12:24 | disposition home or self-care (01) ==
LOC: ERS 09:01 → 2SW 13:24
PROVIDERS: ADMIT Internal Medicine; ATTEND Internal Medicine
DX: J45.901 Unspecified asthma with (acute) exacerbation (principal); I10 Essential (primary) hypertension; E11.9 Type 2 diabetes mellitus without complications; N92.0 Excessive and frequent menstruation with regular cycle; D50.9 Iron deficiency anemia, unspecified; E78.5 Hyperlipidemia, unspecified; E66.9 Obesity, unspecified; Z87.891 Personal history of nicotine dependence; Z68.31 Body mass index [BMI] 31.0-31.9, adult; Z88.5 Allergy status to narcotic agent; Z79.84 Long term (current) use of oral hypoglycemic drugs; Z79.899 Other long term (current) drug therapy
CPT/HCPCS: 36415; 36416; 71045; 71275; 78452; 80048; 80053; 82553; 83880; 84484; 84703; 85025; 85379; 93005; 93017; 94640; 96361; 96365; 96374; 96375; 96376; A9500; G0378; J0696; J2270; J2785; J2920; J3490; J7512; J7611; J7620; Q9966

== ENCOUNTER 2018-12-22 21:37 | Emergency (ER) | payer SELFPAY ==
--- NOTE | 2018-12-22 22:13 | RAD ---
PORTABLE CHEST ONE VIEW: 12/22/2018 9:52 p.m. HISTORY: Chest pain. COMPARISON: 12/18/2018 FINDINGS: The heart size is normal. The lungs are well expanded without focal areas of consolidation, pneumoth oraces, or pleural effusions. IMPRESSION: No radiographic evidence of acute cardiopulmonary process. POS: [facility]
[2018-12-22 22:20] LABS: #Basophils 0.1 thou/uL (0.0-0.2); #Eosinphils 0.4 thou/uL (0.0-0.7); #Lymphocytes 5.7 thou/uL (1.20-3.40); #Monocytes 0.7 thou/uL (0.11-0.59); #Neutrophils 7.5 thou/uL (1.40-6.50); %Basophils 0.7 % (0.0-1.0); %Eosinophils 2.8 % (0.0-10.0); %Lymphocytes 39.6 % (21.0-51.0); %Neutrophils 51.9 % (42.0-75.0); Hemoglobin 10.6 g/dL (12.0-16.0); Mean Corpuscular HGB CONC 32.5 g/dL (32.0-36.0); Mean Corpuscular Hemoglobin 26.6 pg (27.0-31.0); Mean Corpuscular Volume 81.8 fL (78.0-98.0); Mean Platelet Volume 8.4 fL (7.4-10.4); Platelet Count 322 thou/uL (130-400); RBC Distribution Width 15.4 % (11.5-14.5); Red Blood Cell (RBC) Count 3.98 mill/uL (4.20-5.40); White Blood Cell (WBC) Count 14.5 thou/uL (4.8-10.8)
[2018-12-22 22:41] LABS: ALT (SGPT) 21 U/L (8-55); AST (SGOT) 12 U/L (5-34); Albumin 3.8 g/dL (3.5-5.0); Alkaline Phosphatase 91 U/L (40-150); Anion Gap 16 mmol/L (10-20); BUN (Urea Nitrogen) 13 mg/dL (7.0-18.7); Bilirubin, Total 0.2 mg/dL (0.2-1.2); CK (CPK) 48 U/L (29-168); Calc. Creatinine Clearance 0 mL/min (70-130); Carbon Dioxide 22 mmol/L (22-29); Chloride 101 mmol/L (98-107); Estimated GFR-MDRD 83; Globulin 3.8 g/dL (2.4-3.5); Glucose 335 mg/dL (70-105); Lipase 30 U/L (8-78); Potassium 3.6 mmol/L (3.5-5.1); Protein, Total 7.6 g/dL (6.0-8.3); Sodium 135 mmol/L (136-145)
[2018-12-23] MEDS ORDERED: Ketorolac Tromethamine 30 MG/ML VIAL ONE (00:33)
--- NOTE | 2018-12-23 07:37 | CT ---
PRELIMINARY REPORT/[facility]/EMERGENCY AFTER HOURS PROCEDURE: EXAM: CT Angiography Chest With Contrast EXAM DATE/TIME: 12/23/2018 1:21 AM CLINICAL HISTORY: 38 years old, female; Shortness of breath; Patient HX: F38 presents to ED C/O cp to L upper chest for the past few hours. PT reports she was admitted to the hospital on , dc on Saturday. PT faith es fever, cough, h/o of blood clots. PT reports SOB and exacerbated cp with walking. PT denies abd pain. TECHNIQUE: Imaging protocol: Axial computed tomographic angiography images of the chest with intravenous contras t using CT angiography protocol. Coronal and sagittal reformatted images were created and reviewed. 3D rendering: MIP reconstructed images were created and reviewed. COMPARISON: No relevant prior studies available. FINDINGS: Pulmonary arteries: No acute findings. No evidence of pulmonary embolism. Aorta: No acute findings. No aortic aneurysm or dissection. Lungs: No consolidation. No masses. Pleural space: No pneumothorax. No pleural effusion. Heart: No cardiomegaly. No pericardial effusion. Lymph nodes: No significant adenopathy. Bones/joints: No acute fracture. Soft tissues: No acute findings. IMPRESSION: No acute findings. Thank you for allowing us to participate in the care of your patient. Dictated and Authenticated by: Johnathon Danielle MD 12/23/2018 2:14 AM Central Time ([place] & [place]) FINAL REPORT EMERGENCY AFTER HOURS CTA CHEST: Date: 12/23/18 FINDINGS/IMPRESSION: I agree with the preliminary report provided by [facility]. No central or segmental pulmonary embolus is ev ident. No acute air space consolidation, pleural effusion, or pneumothorax evident. No enlarged lymph nodes are demonstrated. Visualized upper abdomen is unremarkable. No acute osseous abnormality is no radha. IMPRESSION: No central or segmental pulmonary embolus. POS:
[2018-12-23] MEDS ORDERED: ISOVUE-370 76%-LOCM 1 ML ONE (10:32)
== END 2018-12-23 02:39 | disposition home or self-care (01) ==
LOC: ERS 21:37
DX: R07.89 Other chest pain (principal); E78.5 Hyperlipidemia, unspecified; I10 Essential (primary) hypertension; E11.9 Type 2 diabetes mellitus without complications; Z87.891 Personal history of nicotine dependence; Z79.84 Long term (current) use of oral hypoglycemic drugs; Z79.899 Other long term (current) drug therapy
CPT/HCPCS: 36415; 71045; 71275; 80053; 82550; 83690; 84484; 85025; 85379; 93005; 96374; J1885; Q9966

== ENCOUNTER 2019-05-01 08:56 | Emergency (ER) | payer SELFPAY ==
--- NOTE | 2019-05-01 11:22 | RAD ---
3 VIEWS LEFT HAND: Date: 05/01/19 COMPARISON: 12/20/06. HISTORY: Punched something, left hand pain. FINDINGS: 3 views of the left hand show no evidence of acute fracture or dislocation. No degenerative changes a re seen. No soft tissue swelling is seen. IMPRESSION: No evidence of acute osseous abnormality. POS: [facility]
== END 2019-05-01 12:10 | disposition home or self-care (01) ==
LOC: ERS 08:56
DX: M79.642 Pain in left hand (principal); J45.909 Unspecified asthma, uncomplicated; E11.9 Type 2 diabetes mellitus without complications; F17.290 Nicotine dependence, other tobacco product, uncomplicated; Y04.2XXA Assault by strike against or bumped into by another person, initial encounter

== ENCOUNTER 2022-10-24 22:17 | Observation (INO) | payer OTHER ==
[2022-10-25 00:37] VITALS: BMI 30.1
[2022-10-25] MEDS ORDERED: Ondansetron ODT 4 MG TAB PO PRN (00:40)
[2022-10-25] MEDS ORDERED: Ketorolac Tromethamine 30 MG/ML VIAL IVP SCH (03:00)
[2022-10-25 04:33] LABS: #Eosinphils 0.2 thou/uL (0.0-0.7); #Monocytes 0.6 thou/uL (0.11-0.59); #Neutrophils 2.5 thou/uL (1.40-6.50); %Basophils 0.6 % (0.0-1.0); %Eosinophils 2.6 % (0.0-10.0); %Lymphocytes 53.2 % (21.0-51.0); %Monocytes 8.1 % (0.0-10.0); %Neutrophils 35.4 % (42.0-75.0); Mean Corpuscular Hemoglobin 29.2 pg (27.0-31.0); Mean Corpuscular Volume 91.2 fl (78.0-98.0); Mean Platelet Volume 10.2 fL (7.4-10.4); Platelet Count 278 10x3/uL (130-400); RBC Distribution Width 13.2 % (11.5-14.5); Red Blood Cell (RBC) Count 4.11 mill/uL (4.20-5.40); White Blood Cell (WBC) Count 7.1 10x3/uL (4.8-10.8)
[2022-10-25] MEDS ORDERED: Acetaminophen 500 MG TAB PO PRN (04:38)
[2022-10-25 04:40] LABS: Hemoglobin A1c 8.2 % (4.0-6.0)
[2022-10-25] MEDS ORDERED: traMADol HCl 50 MG TAB PO SCH (04:45)
[2022-10-25] MEDS ORDERED: Acetaminophen 500 MG TAB PO SCH (04:45)
[2022-10-25 04:57] LABS: ALT (SGPT) 15 U/L (8-55); AST (SGOT) 12 U/L (5-34); Albumin 3.7 g/dL (3.5-5.0); Alkaline Phosphatase 73 U/L (40-110); Anion Gap 11 mmol/L (10-20); BUN (Urea Nitrogen) 13 mg/dL (7.0-18.7); Bilirubin, Total 0.2 mg/dL (0.2-1.2); Calc. Creatinine Clearance 131 mL/min (70-130); Calcium 9.5 mg/dL (7.8-10.44); Carbon Dioxide 24 mmol/L (22-29); Chloride 106 mmol/L (98-107); Estimated GFR 101; Globulin 3.6 g/dL (2.4-3.5); Glucose 158 mg/dL (70-105); Potassium 3.9 mmol/L (3.5-5.1); Protein, Total 7.3 g/dL (6.0-8.3); Sodium 137 mmol/L (136-145)
[2022-10-25] MEDS ORDERED: glipiZIDE 10 MG TAB PO SCH (07:30)
[2022-10-25] MEDS ORDERED: Clopidogrel Bisulfate 75 MG TAB PO SCH (09:00)
[2022-10-25] MEDS ORDERED: Aspirin 81 mg Enteric Coated Tablet PO SCH (09:00)
[2022-10-25] MEDS ORDERED: Lisinopril 20 MG TAB PO SCH (09:00)
[2022-10-25] MEDS ORDERED: Famotidine 20 MG TAB PO SCH (09:00)
[2022-10-25] MEDS ORDERED: Empagliflozin 10 MG TAB PO SCH (09:00)
[2022-10-25 12:20] VITALS: TEMP 97.9
[2022-10-25] MEDS ORDERED: traMADol HCl 50 MG TAB PO PRN (13:14)
[2022-10-25 15:34] VITALS: BP 109/65
== END 2022-10-25 18:18 | disposition home or self-care (01) ==
LOC: 2SW 23:46 → MERGE 23:46
PROVIDERS: ADMIT Family Medicine; ATTEND Family Medicine
DX: I77.71 Dissection of carotid artery (principal); I65.23 Occlusion and stenosis of bilateral carotid arteries; I10 Essential (primary) hypertension; E11.9 Type 2 diabetes mellitus without complications; J45.909 Unspecified asthma, uncomplicated; I08.8 Other rheumatic multiple valve diseases; E66.9 Obesity, unspecified; Z68.30 Body mass index [BMI] 30.0-30.9, adult; Z79.02 Long term (current) use of antithrombotics/antiplatelets; Z79.82 Long term (current) use of aspirin; Z79.84 Long term (current) use of oral hypoglycemic drugs; Z79.899 Other long term (current) drug therapy; Z88.5 Allergy status to narcotic agent
CPT/HCPCS: 36415; 36416; 70551; 80053; 83036; 85025; 93306; 96374; G0378; J1885

== ENCOUNTER 2023-02-01 12:14 | Emergency (ER) | payer OTHER ==
[2023-02-01] MEDS ORDERED: predniSONE 20 MG TAB ONE (13:19)
[2023-02-01] MEDS ORDERED: Famotidine 20 MG TAB ONE (13:19)
[2023-02-01] MEDS ORDERED: hydrOXYzine 25 MG TAB ONE (13:21)
== END 2023-02-01 13:30 | disposition home or self-care (01) ==
LOC: ERS 12:14
DX: T78.40XA Allergy, unspecified, initial encounter (principal); E11.9 Type 2 diabetes mellitus without complications; I10 Essential (primary) hypertension; J45.909 Unspecified asthma, uncomplicated; E78.5 Hyperlipidemia, unspecified; Z79.82 Long term (current) use of aspirin; Z79.899 Other long term (current) drug therapy
CPT/HCPCS: 99283; J7512

== ENCOUNTER 2024-04-08 10:01 | Emergency (ER) | payer OTHER | END 2024-04-08 12:28 | LOC: ERS 10:01 | DX: Z53.21 Procedure and treatment not carried out due to patient leaving prior to being seen by health care provider (principal) | CPT/HCPCS: 71046; 93005 ==

== ENCOUNTER 2024-06-29 06:54 | Emergency (ER) | payer OTHER ==
[2024-06-29 07:15] LABS: #Basophils 0.04 10x3/uL (0.0-0.2); %Basophils 0.6 % (0.0-1.0); %Eosinophils 2.5 % (0.0-10.0); %Lymphocytes 49.5 % (21.0-51.0); %Neutrophils 40.1 % (42.0-75.0); Hematocrit 37.6 % (36.0-47.0); Hemoglobin 12.7 g/dL (12.0-16.0); Mean Corpuscular HGB CONC 33.8 g/dL (32.0-36.0); Mean Corpuscular Hemoglobin 29.7 pg (27.0-31.0); Mean Corpuscular Volume 88.1 fL (78.0-98.0); Platelet Count 246 10x3/uL (130-400); RBC Distribution Width 12.5 % (11.5-14.5); Red Blood Cell (RBC) Count 4.27 mill/uL (4.20-5.40)
[2024-06-29] MEDS ORDERED: Acetaminophen 500 MG TAB ONE (07:28)
[2024-06-29] MEDS ORDERED: Aspirin Chewable 81 MG TAB ONE ×2 (07:28→07:29)
[2024-06-29 07:46] LABS: BHCG - Serum Negative (NEGATIVE); Pregs Control Background? CLEAR/WHITE (CLR/WHITE); Pregs Control Bar Appear? YES (CONTROL BAR)
[2024-06-29 07:53] LABS: ALT (SGPT) 16 U/L (8-55); AST (SGOT) 13 U/L (5-34); Albumin 3.7 g/dL (3.5-5.0); Alkaline Phosphatase 86 U/L (40-110); Anion Gap 15 mmol/L (10-20); BUN (Urea Nitrogen) 8 mg/dL (7.0-18.7); Bilirubin, Total 0.5 mg/dL (0.2-1.2); Calc. Creatinine Clearance 0 mL/min (70-130); Carbon Dioxide 23 mmol/L (22-29); Chloride 104 mmol/L (98-107); Estimated GFR 113; Globulin 3.8 g/dL (2.4-3.5); Glucose 230 mg/dL (70-105); Potassium 3.6 mmol/L (3.5-5.1); Protein, Total 7.5 g/dL (6.0-8.3); Sodium 138 mmol/L (136-145)
[2024-06-29 07:55] LABS: Troponin I Less than 0.010 ng/mL (< 0.028)
== END 2024-06-29 08:51 | disposition left against medical advice (07) ==
LOC: ERS 06:54
DX: R07.89 Other chest pain (principal); I10 Essential (primary) hypertension; E11.9 Type 2 diabetes mellitus without complications; F17.210 Nicotine dependence, cigarettes, uncomplicated; Z55.6 Problems related to health literacy
CPT/HCPCS: 36415; 71045; 80053; 84484; 84703; 85025; 85379; 93005